=== PATIENT | female | born 1955 | race Caucasian/White ===

== ENCOUNTER → 2016-11-15 | Outpatient (CLI) | payer OTHER ==
[~2016-11-15] MED LIST: AMBIEN 10 MG TA10 MG PO; BLACK COHOSH40 MG PO; CALCIUM 500 +1 EAC5 PO; CIPROFLOXACIN500 M1 PO; DIAZEPAM 5 MG5 MG PO; GLUCOSAMINE HC500 MG PO; LORTAB 7.5/5001 TA3 PO; MEDROLDOSEPACK PO; METAMUCIL0.52 GM PO; PERCOCET 5-3251 EACH PO; PREDNISOLONE 5 M5 M1 PO; ROXICET 5-3251 EACH PO; VALIUM5 MG PO; VICODIN ES TAB1 EACH PO
== END ==
LOC: RAD 15:34
DX: R10.2 Pelvic and perineal pain (principal)

== ENCOUNTER → 2016-11-16 | Outpatient (CLI) | payer OTHER | LOC: CAT 07:19 | DX: N83.202 Unspecified ovarian cyst, left side (principal) ==